=== PATIENT | female | born 1995 | race Caucasian/White ===

== ENCOUNTER → 2016-09-20 | Emergency (ER) | payer MEDICAID, OTHER ==
[~2016-09-20] VITALS: Ht 167.6 cm; Wt 108.9 kg
[2016-09-20 13:42] VITALS: BP_SYST 160
== END | disposition still patient (30) ==
LOC: SED 13:29
DX: S39.92XA Unspecified injury of lower back, initial encounter (principal); X58.XXXA Exposure to other specified factors, initial encounter; Y93.89 Activity, other specified; Y99.8 Other external cause status; Y92.89 Other specified places as the place of occurrence of the external cause
CPT/HCPCS: 99283; J7030

== ENCOUNTER 2018-08-15 23:38 | Emergency (ER) | payer MEDICAID ==
[~2018-08-15] VITALS: Ht 167.6 cm; Wt 99.8 kg
[2018-08-16 00:10] VITALS: BP_SYST 128
[2018-08-16] MEDS ORDERED: AMOXICILLIN 500 MG CAPSULE PO ONE (01:30)
[2018-08-16] MEDS ORDERED: IBUPROFEN 600 MG TABLET PO ONE (01:30)
[2018-08-16 01:50] VITALS: BP_SYST 128
== END 2018-08-16 01:50 | disposition home or self-care (01) ==
LOC: SED 23:38
DX: K04.7 Periapical abscess without sinus (principal)
CPT/HCPCS: 99283

== ENCOUNTER 2018-10-14 10:53 | Emergency (ER) | payer MEDICAID ==
[~2018-10-14] VITALS: Ht 167.6 cm; Wt 104.3 kg
[2018-10-14 11:06] VITALS: BP_SYST 133
--- NOTE | 2018-10-14 11:34 | NUR ---
Dr. Olson at bedside for evaluation
--- NOTE | 2018-10-14 11:44 | NUR ---
c/o right front tooth x2-3 months. Was waiting for insurance approval when she lost her insurance. No drainage, tender to touch. Taking tylenol ES with mild relief.
--- NOTE | 2018-10-14 11:52 | NUR ---
Patient given written and verbal discharge instructions and verbalizes understanding. ER MD discussed with patient the results and treatment provided. Patient in stable condition. ID arm band removed. Rx of norco, motrin, penicillin given. Patient educated on pain management and to follow up with PMD. Pain Scale 6/10, will take RX when she gets home because she is driving. Opportunity for questions provided and answered. Medication side effect fact sheet provided.
[2018-10-14 11:53] VITALS: BP_SYST 133
== END 2018-10-14 11:53 | disposition home or self-care (01) ==
LOC: SED 10:53
DX: K08.89 Other specified disorders of teeth and supporting structures (principal); R03.0 Elevated blood-pressure reading, without diagnosis of hypertension
CPT/HCPCS: 99283

== ENCOUNTER 2019-07-31 19:36 | Emergency (ER) | payer MEDICAID ==
[~2019-07-31] VITALS: Ht 167.6 cm; Wt 111.1 kg
[2019-07-31 19:39] VITALS: BP_SYST 147
--- NOTE | 2019-07-31 19:44 | NUR ---
Patient triaged and placed in waiting room. VSS and patient appears in no acute distress at this time. Accompanied by mother, awaiting available bed, and MD notified of need for MSE.
--- NOTE | 2019-07-31 20:30 | NUR ---
Patient to ER bed 4 to gown for evaluation. Side rails up. Report given to Juanito DEAL by Melinda DEAL.
--- NOTE | 2019-07-31 20:35 | NUR ---
Patient C/O migrane on R side. Pain rated 7/10. She reports that she has had a toothache and a sore throat on the right side that began 1 to 2 months ago. She states that she took ibuprofen and Tylenol 1 hour prior to arrival with no relief. Patient states that she was previously prescribed Sumatriptan for migraines but states that it is ineffective. No fever, nausea, or vomiting. No injuries/complaints noted by patient or noted.
--- NOTE | 2019-07-31 20:50 | NUR ---
ER Dr. Ngo at bedside examining patient.
[2019-07-31] MEDS ORDERED: DIPHENHYDRAMINE HCL 25 MG CAPSULE PO ONE (21:00)
[2019-07-31] MEDS ORDERED: AMOXICILLIN 500 MG CAPSULE PO ONE (21:00)
[2019-07-31] MEDS ORDERED: METOCLOPRAMIDE HCL 10 MG TABLET PO ONE (21:00)
== END 2019-07-31 22:45 | disposition left against medical advice (07) ==
LOC: SED 19:36
DX: G43.909 Migraine, unspecified, not intractable, without status migrainosus (principal); K08.89 Other specified disorders of teeth and supporting structures
CPT/HCPCS: 99284; J8597; Q0163